=== PATIENT | male | born 1970 | race Caucasian/White ===

== ENCOUNTER 2017-12-20 08:59 | Emergency (ER) | payer OTHER ==
[2017-12-20] MEDS ORDERED: NORMAL SALINE 1000 ML 500 ML IV ONE (09:14)
--- NOTE | 2017-12-20 09:22 | ER Document Report ---
ED Medical Screen (RME) - General Chief Complaint: Abdominal Pain Stated Complaint: ABDOMEN PAIN Time Seen by Provider: 12/20/17 09:13 TRAVEL OUTSIDE OF THE [place] IN LAST 30 DAYS: No - HPI Notes: 12/20/17 09:20 Patient is a 47-year-old male that presents to the emergency department for chief complaint of right upper quadrant pain and jaundice. Patient has had worsening jaundice, ascites and abdominal pain for the last 3 weeks. He states he was a daily drinker of alcohol and quit 6 weeks ago. He denies any history of liver issues prior to the last few weeks. He was recently seen at [facility] this issue. He has an appointment tomorrow morning for paracentesis but states he cannot wait that long. ROS: GENERAL: Denies fever of chills CV: Denies chest pain PHYSICAL EXAMINATION: GENERAL: Well-appearing, well-nourished and in no acute distress. HEAD: Atraumatic, normocephalic. EYES: Pupils equal round extraocular movements intact, scleral icterus ENT: Nares patent NECK: Normal range of motion LUNGS: No respiratory distress Musculoskeletal: Normal range of motion NEUROLOGICAL: Normal speech, normal gait. PSYCH: Normal mood, normal affect. Skin: Jaundice Abdominal: Tense ascites and distention no guarding MDM: Patient seen and examined for rapid initial assessment. Vital signs reviewed. A comprehensive ED assessment and evaluation of the patient, analysis of test results and completion of the medical decision making process will be conducted by additional ED providers. - Related Data Allergies/Adverse Reactions: No Known Allergies Allergy (Verified 12/20/17 09:03) Physical Exam - Vital signs Vitals: Temp Pulse Resp BP Pulse Ox 98.3 F 80 20 128/90 H 99 12/20/17 09:09 12/20/17 09:09 12/20/17 09:09 12/20/17 09:09 12/20/17 09:09 Course - Vital Signs Vital signs: Temp Pulse Resp BP Pulse Ox 98.3 F 80 20 128/90 H 99 12/20/17 09:09 12/20/17 09:09 12/20/17 09:09 12/20/17 09:09 12/20/17 09:09
[2017-12-20 10:01] LABS: ABSOLUTE EOSINOPHILS # (AUTO) 0.2 10^3/uL (0.0-0.6); ABSOLUTE LYMPHOCYTES (AUTO) 0.7 10^3/uL (0.5-4.7); ABSOLUTE MONOCYTES (AUTO) 0.7 10^3/uL (0.1-1.4); ABSOLUTE NEUT (AUTO) 5.5 10^3/uL (1.7-8.2); BASOPHILS % (AUTO) 0.2 % (0-2); EOSINOPHILS % (AUTO) 2.7 % (0-6); HEMATOCRIT 37.8 % (37.9-51.0); HEMOGLOBIN 13.4 g/dL (13.5-17.0); LYMPHOCYTES % (AUTO) 10.2 % (13-45); MEAN CORPUSCULAR HEMOGLOBIN 35.3 pg (27.0-33.4); MEAN CORPUSCULAR HGB CONC 35.4 g/dL (32.0-36.0); MEAN CORPUSCULAR VOLUME 100 fl (80-97); MONOCYTES % (AUTO) 9.7 % (3-13); PLATELET COUNT 139 10^3/uL (150-450); RED BLOOD COUNT 3.79 10^6/uL (4.35-5.55); RED CELL DISTRIBUTION WIDTH 15.8 % (11.5-14.0); SEGMENTED NEUTROPHILS % (AUTO) 77.2 % (42-78); TOTAL CELLS COUNTED % (AUTO) 100 %; WHITE BLOOD COUNT 7.1 10^3/uL (4.0-10.5)
--- NOTE | 2017-12-20 10:02 | ER Document Report ---
ED General - General Chief Complaint: Abdominal Pain Stated Complaint: ABDOMEN PAIN Time Seen by Provider: 12/20/17 09:13 TRAVEL OUTSIDE OF THE [place] IN LAST 30 DAYS: No - HPI Notes: Patient is a 47-year-old male with no medical history who presents to the emergency department with a three-week history of jaundice, ascites, and abdominal fullness occ RUQ pain. Patient states the jaundice began 3 weeks ago and has progressed rapidly. He reports drinking 6-12 beers per day for the majority of his adult life however he states he has not had a drink in the past 6 weeks. He was recently evaluated [facility]. Patient recently went to his PCP who scheduled him for paracentesis. However, he was unable to obtain the paracentesis due to scheduling issues. Patient states that he is still able to eat and drink, but does have a decreased p.o. intake. He is urinating normally and having normal bowel movements. Denies any headache, fever, changes in vision/speech/mentation/hearing, URI, chest pain , palpitations, syncope, cough, shortness of breath, wheeze, dyspnea, nausea/ vomiting/diarrhea, urinary retention, dysuria, hematuria, back pain, loss of control of bowel or bladder, or muscle paralysis/weakness. Documented by Brett MC Agree with documentation above, JAXON. - Related Data Allergies/Adverse Reactions: No Known Allergies Allergy (Verified 12/20/17 09:03) Past Medical History - Social History Smoking Status: Never Smoker Chew tobacco use (# tins/day): No Frequency of alcohol use: quit 6 wks ago Drug Abuse: None Family History: Reviewed & Not Pertinent Patient has suicidal ideation: No Patient has homicidal ideation: No - Past Medical History Cardiac Medical History: Reports: Hx Hypertension Renal/ Medical History: Denies: Hx Peritoneal Dialysis Review of Systems - Review of Systems -: Yes All other systems reviewed and negative Physical Exam - Vital signs Vitals: Temp Pulse Resp BP Pulse Ox 98.3 F 80 20 128/90 H 99 12/20/17 09:09 12/20/17 09:09 12/20/17 09:09 12/20/17 09:09 12/20/17 09:09 - Notes Notes: PHYSICAL EXAMINATION: GENERAL: Well-appearing, well-nourished and in no acute distress. A&Ox4. Answers questions appropriately. HEAD: Atraumatic, normocephalic. EYES: Pupils equal round and reactive to light, extraocular movements intact, + sclera icteric, conjunctiva are normal. ENT: Nares patent and without discharge. oropharynx clear without exudates. No tonsilar hypertrophy or erythema. Moist mucous membranes. NECK: Normal range of motion, supple without lymphadenopathy LUNGS: Breath sounds clear to auscultation bilaterally and equal. No wheezes rales or rhonchi. HEART: Regular rate and rhythm without murmurs, rubs, gallops. ABDOMEN: tense, obtunded No guarding, no rebound. Normal bowel sounds present. No CVA tenderness bilaterally. Musculoskeletal: FROM to passive/active. Strength 5+/5. Extremities: No cyanosis, clubbing, or edema b/l. Peripheral pulses 2+. Capillary refill less than 3 seconds. NEUROLOGICAL: Cranial nerves grossly intact. Normal speech, normal gait. PSYCH: Normal mood, normal affect. SKIN: jaundice Course - Re-evaluation Re-evalutation: 12/20/17 13:28 I did call and speak with our hospitalist, Dr. Lancaster, who advised paracentesis by radiology and discharged home. I did speak with our radiologist who is in agreement with the paracentesis. I then spoke with Dr. Topete, GI, who believes that this is alcoholic hepatitis and to have him follow-up after paracentesis and ultrasound in his office next week. 12/20/17 16:[address] Park, surgeon, about his labs and cholelithiasis. He does not believe this is a blocked duct and is okay for discharge. Patient is an afebrile, well-hydrated, 47-year-old male who presents to the ED with elevated bilirubin, jaundice, ascites, and acute UTI. Etiology is unclear at this time. Vitals are acceptable without any significant tachycardia, tachypnea, or hypoxia. PE is otherwise unremarkable. Patient had a successful paracentesis performed today that withdrew 4500 cc of fluid. Labs are pending. Ascitic fluid acceptable at this time. CBC showed mild anemia. INR within normal limits. CMP showed hypokalemia. Patient did receive p.o. potassium chloride today. CT scan was unremarkable for acute pathology aside from the ascitic fluid/distended abdomen. Urinalysis does have white blood cell clumps showing a bacteria in the urine so I will be covering him for urinary infection. Urine culture is pending. No further labs or imaging warranted at this time based on H&P. Low suspicion/risk for acute appendicitis, bowel obstruction, acute cholecystitis, perforated diverticulitis, incarcerated hernia , pancreatitis, perforated ulcer, peritonitis, sepsis, testicular torsion, or other systemic emergent condition at this time. Patient is aware that his condition can change from initial presentation and he needs to monitor symptoms closely and seek medical attention if any acute changes. I did review with him the differential including benign conditions for ascites as well as possible cancer. I will send him home with a prescription for Keflex. Conservative measures otherwise for symptoms. Recheck with PCM in 3-5 days. Schedule an appointment with gastroenterology for next week. Return to the ED with any worsening/concerning symptoms otherwise as reviewed in discharge. Patient is in agreement. - Vital Signs Vital signs: Temp Pulse Resp BP Pulse Ox 98.3 F 80 19 120/65 98 12/20/17 09:09 12/20/17 09:09 12/20/17 14:14 12/20/17 14:14 12/20/17 14:14 - Laboratory Result Diagrams: 12/20/17 09:25 12/20/17 09:25 Laboratory results interpreted by me: 12/20/17 12/20/17 12/20/17 09:25 09:25 09:25 RBC 3.79 L Hgb 13.4 L Hct 37.8 L MCV 100 H MCH 35.3 H RDW 15.8 H Plt Count 139 L Lymphocytes % 10.2 L PT Potassium 3.0 L* Creatinine 1.62 H Est GFR ( Amer) 56 L Est GFR (Non-Af Amer) 46 L Total Bilirubin 38.1 H Direct Bilirubin 34.3 H AST 136 H Alkaline Phosphatase 256 H Total Protein 8.8 H Urine Glucose (UA) 50 H Urine Blood SMALL H Urine Bilirubin MODERATE H Urine Urobilinogen 4.0 H 12/20/17 09:25 RBC Hgb Hct MCV MCH RDW Plt Count Lymphocytes % PT 17.1 H Potassium Creatinine Est GFR ( Amer) Est GFR (Non-Af Amer) Total Bilirubin Direct Bilirubin AST Alkaline Phosphatase Total Protein Urine Glucose (UA) Urine Blood Urine Bilirubin Urine Urobilinogen Discharge - Discharge Clinical Impression: Acute UTI (urinary tract infection), Hypokalemia, Jaundice Ascites Qualifiers: Ascites type: due to alcoholic cirrhosis Qualified Code(s): K70.31 - Alcoholic cirrhosis of liver with ascites Condition: Stable Disposition: HOME, SELF-CARE Instructions: Abdominal Pain ([facility]), Cephalexin ([facility]), Urinary Tract Infection ( [facility]) Additional Instructions: Maintain adequate fluid and food intake Healthy diet Avoid alcohol Zofran as needed Monitor for any worsening symptoms Make sure you are staying hydrated enough to urinate and have normal BM's Have your potassium rechecked next week* Recheck with your PCM in 3-5 days Schedule appointment gastroenterology next week for further evaluation and management Return to the ED with any worsening symptoms and/or development of fever, headache, chest pain, palpitations, syncope, shortness of breath, trouble breathing, abdominal pain, n/v/d, blood in stool/urine, weakness, or other worsening symptoms that are concerning to you. Prescriptions: Ondansetron [Zofran Odt 4 mg Tablet] 1 - 2 tab PO Q4H PRN #15 tab.rapdis PRN Reason: For Nausea/Vomiting Potassium Chloride 10 meq PO DAILY #10 capsule.er Referrals: CATA DAHL NP [Primary Care Provider] - Follow up in 3-5 days PILI TOPETE MD [ACTIVE STAFF] - Follow up in 1 week
--- NOTE | 2017-12-20 10:02 | ER Document Report ---
HPI - HPI Pain Level: 4 - DERM Skin Color: Jaundiced Past Medical History - Social History Smoking Status: Never Smoker Chew tobacco use (# tins/day): No Frequency of alcohol use: quit 6 wks ago Drug Abuse: None Family History: Reviewed & Not Pertinent Patient has suicidal ideation: No Patient has homicidal ideation: No - Past Medical History Cardiac Medical History: Reports: Hx Hypertension Renal/ Medical History: Denies: Hx Peritoneal Dialysis Vertical Provider Document - INFECTION CONTROL TRAVEL OUTSIDE OF THE [place] IN LAST 30 DAYS: No Course - Vital Signs Vital signs: Temp Pulse Resp BP Pulse Ox 98.3 F 80 20 128/90 H 99 12/20/17 09:09 12/20/17 09:09 12/20/17 09:09 12/20/17 09:09 12/20/17 09:09 - Laboratory Result Diagrams: 12/20/17 09:25 12/20/17 09:25
[2017-12-20 10:12] LABS: AMORPHOUS SEDIMENT,URINE 1+ /HPF; APPEARANCE,URINE SLIGHTLY-CLOUDY; BILIRUBIN,URINE MODERATE (NEGATIVE); COLOR,URINE AMBER; GLUCOSE, URINE 50 mg/dL (NEGATIVE); KETONES,URINE NEGATIVE (NEGATIVE); LEUKOCYTE ESTERASE,URINE NEGATIVE (NEGATIVE); NITRITE,URINE NEGATIVE (NEGATIVE); PROTEIN,URINE NEGATIVE (NEGATIVE); URINE SPECIFIC GRAVITY 1.015
[2017-12-20 10:22] LABS: ALANINE AMINOTRANSFERASE 40 U/L (21-72); ALBUMIN 3.5 g/dL (3.5-5.0); ALKALINE PHOSPHATASE 256 U/L (38-126); ANION GAP 14 (5-19); ASPARTATE AMINO TRANSFERASE 136 U/L (17-59); BLOOD UREA NITROGEN 20 mg/dL (7-20); CARBON DIOXIDE 24 mmol/L (22-30); CHLORIDE 101 mmol/L (98-107); GLUCOSE 100 mg/dL (75-110); LIPASE 296.9 U/L (23-300); SODIUM 138.5 mmol/L (137-145); TOTAL PROTEIN 8.8 g/dL (6.3-8.2)
[2017-12-20 10:28] LABS: BILIRUBIN,TOTAL 38.1 mg/dL (0.2-1.3)
[2017-12-20 10:29] LABS: BILIRUBIN,DIRECT 34.3 mg/dL (0.0-0.4)
[2017-12-20 10:31] LABS: CALCIUM 8.9 mg/dL (8.4-10.2)
[2017-12-20] MEDS ORDERED: POTASSIUM CHLORIDE 10 MEQ CAPSULE.ER PO ONE (11:13)
[2017-12-20 12:07] LABS: INTERNATIONAL RATION (INR) 1.33; PROTHROMBIN TIME 17.1 SEC (11.4-15.4)
--- NOTE | 2017-12-20 12:48 | RADIOLOGY REPORT (SQ) ---
EXAM DESCRIPTION: CT ABD/PELVIS WITH IV ONLY COMPLETED DATE/TIME: 12/20/2017 12:30 pm REASON FOR STUDY: ascities COMPARISON: None. TECHNIQUE: CT scan of the abdomen and pelvis performed using helical scanning technique with dynamic intravenous contrast injection. No oral contrast. Images reviewed with lung, soft tissue, and bone windows. Reconstructed coronal and sagittal MPR images reviewed. Delayed images for evaluation of the urinary system also acquired. All images stored on PACS. All CT scanners at this facility use dose modulation, iterative reconstruction, and/or weight based d osing when appropriate to reduce radiation dose to as low as reasonably achievable (ALARA). [facility]: Dose Right [facility]: CareDose [facility]: Dose Right [facility]: Teradose 4D [facility]: FMS [place] CONTRAST TYPE AND DOSE: contrast/concentration: Isovue 300.00 mg/ml; Total Contrast Delivered: 98.0 ml; Total Saline Delivered: 57.0 ml 98 cc Omnipaque 350- low osmolar. RENAL FUNCTION: Creatinine 1.62 RADIATION DOSE: CT Rad equipment meets quality standard of care and radiation dose reduction techniq ues were employed. CTDIvol: 18.7 - 20.2 mGy. DLP: 2438 mGy-cm.. LIMITATIONS: None. FINDINGS: LOWER CHEST: No significant findings. No nodules or infiltrates. LIVER: Hepatomegaly. 27 cm. No hepatic masses. No ductal dilatation. SPLEEN: Splenomegaly. 19 cm in length. No intrinsic splenic masses. PANCREAS: No masses. No significant calcifications. No adjacent inflammation or peripancreatic fluid collections. Pancreatic duct not dilated. GALLBLADDER: Not visualized. No history of cholecystectomy bra clinical information. ADRENAL GLANDS: No significant masses or asymmetry. RIGHT KIDNEY AND URETER: No solid masses. No significant calcifications. No hydronephrosis or hyd roureter. LEFT KIDNEY AND URETER: No solid masses. No significant calcifications. No hydronephrosis or hydr oureter. AORTA AND VESSELS: No aneurysm. No dissection. Renal arteries, SMA, celiac without stenosis. RETROPERITONEUM: No retroperitoneal adenopathy, hemorrhage or masses. BOWEL AND PERITONEAL CAVITY: No masses or inflammatory changes. Large volume of abdominal and pelvic ascites. APPENDIX: Normal. PELVIS: No mass. No free fluid. Normal bladder. ABDOMINAL WALL: No masses. No hernias. BONES: No significant or acute findings. OTHER: No other significant finding. IMPRESSION: Large volume of abdominal and pelvic ascites. Hepatosplenomegaly. TECHNICAL DOCUMENTATION: JOB ID: [id number] Quality ID # [id number]: Final reports with documentation of one or more dose reduction techniques (e.g., Au tomated exposure control, adjustment of the mA and/or kV according to patient size, use of iterative reconstruction technique) 2010 [employer]- All Rights Reserved Reading location - IP/workstation name: [email or web address]
[2017-12-20] MEDS ORDERED: HYDROMORPHONE HCL INJ/PF 2 MG/ML AMPULE IV ONE (13:22)
[2017-12-20 16:12] LABS: FLUID APPEARANCE CLEAR; FLUID COLOR YELLOW; FLUID SOURCE ASCITES; FLUID VISCOSITY LIQUID
[2017-12-20 16:14] LABS: FLUID TYPE PERITONEAL
--- NOTE | 2017-12-20 16:24 | RADIOLOGY REPORT (SQ) ---
EXAM DESCRIPTION: U/S ABD PARACENTESIS COMPLETED DATE/TIME: 12/20/2017 3:56 pm REASON FOR STUDY: ascites, jaundice COMPARISON CT abdomen pelvis 12/20/2017 LIMITATIONS: None. PROCEDURE: After obtaining informed consent, the patient was brought to the ultrasound suite. The p rocedure was performed with the patient on a gurney. Ultrasound was used to identify a prominent poc ket of ascites in the right lower quadrant. An appropriate access site was selected. The patient wa s prepped and draped in usual sterile fashion. The access site was anesthetized with 7 mL 1% lidoca ine. A [id number] needle was advanced into the fluid. After aspiration of fluid the needle, th e catheter was advanced off the needle into the fluid. A total of 4,500 mL of cloudy straw-colored f luid was removed. The patient tolerated the procedure well left the department in satisfactory condit ion. Fluoro was sent for testing as per the emergency room physician IMPRESSION: Successful ultrasound-guided paracentesis COMMENT: Patient medication list reviewed: Yes- Quality ID# [id number]:Eligible professional attests to doc umenting in the medical record they obtained, updated, or reviewed the patient's current medications. TECHNICAL DOCUMENTATION: JOB ID: [id number] [employer]- All Rights Reserved Reading location - IP/workstation name: [email or web address]
--- NOTE | 2017-12-20 16:40 | RADIOLOGY REPORT (SQ) ---
EXAM DESCRIPTION: U/S ABDOMEN LIMITED W/O DOP COMPLETED DATE/TIME: 12/20/2017 4:21 pm REASON FOR STUDY: elevated LFT's COMPARISON: None. TECHNIQUE: Dynamic and static grayscale images acquired of the abdomen and recorded on PACS. Additio nal selected color Doppler and spectral images recorded. LIMITATIONS: None. FINDINGS: PANCREAS: No masses. Visualized pancreatic duct normal caliber. LIVER: 18.5 cm. No masses. There is ascites. LIVER VASCULATURE: Not well seen. GALLBLADDER: Gallstones and sludge. Slight thickening of the gallbladder wall ULTRASOUND-DETECTED BUENO'S SIGN: Negative. INTRAHEPATIC DUCTS AND COMMON DUCT: CBD and intrahepatic ducts normal caliber. No filling defects. INFERIOR VENA CAVA: Not imaged. AORTA: No aneurysm. RIGHT KIDNEY: Normal size, 10.8 cm. Normal echogenicity. No solid or suspicious masses. No hydroneph rosis. No calcifications. PERITONEAL AND RIGHT PLEURAL SPACE: No ascites or effusions. OTHER: No other significant findings. IMPRESSION: Cholelithiasis. Questionable thickening of gallbladder wall. This may be secondary to the ascites. Ascites. TECHNICAL DOCUMENTATION: JOB ID: [id number] [employer]- All Rights Reserved Reading location - IP/workstation name: [email or web address]
[2017-12-20 18:17] VITALS: BP 123/81
--- NOTE | 2017-12-20 23:11 | EKG REPORT ---
SEVERITY:- ABNORMAL ECG - SINUS RHYTHM BORDERLINE T ABNORMALITIES, ANT-LAT LEADS PROLONGED QT INTERVAL : Confirmed by: Meet Louie 20-Dec-2017 23:10:06
[2017-12-28 13:38] LABS: HEPATITIS A AB IGM Negative (Negative); HEPATITIS B CORE AB IGM Negative (Negative); HEPATITS B SURFACE ANTIGEN Negative (Negative)
[2017-12-28 14:23] LABS: HEPATITIS C VIRUS ANTIBODY <0.1 s/co ratio (0.0-0.9)
== END 2017-12-20 18:52 | disposition home or self-care (01) ==
LOC: ER 08:59
DX: K70.31 Alcoholic cirrhosis of liver with ascites (principal); N39.0 Urinary tract infection, site not specified; E87.6 Hypokalemia; R10.11 Right upper quadrant pain; I10 Essential (primary) hypertension; D64.9 Anemia, unspecified
CPT/HCPCS: 93005; 99284; 96360; 36415; 87205; 87206; 87116; 87070; 87101; 82140; 87252; 83690; 85025; 85610; 89050; 87075; 80053; 81001; 87015; 80074; 76705; 49083; 74177; 93010; J7030

== ENCOUNTER 2017-12-28 08:08 | Emergency (ER) | payer OTHER ==
[2017-12-28 10:58] LABS: INTERNATIONAL RATION (INR) 1.35; PROTHROMBIN TIME 17.3 SEC (11.4-15.4)
[2017-12-28 10:59] LABS: HEMATOCRIT 36.8 % (37.9-51.0); HEMOGLOBIN 13.4 g/dL (13.5-17.0); MEAN CORPUSCULAR HEMOGLOBIN 35.9 pg (27.0-33.4); MEAN CORPUSCULAR HGB CONC 36.4 g/dL (32.0-36.0); MEAN CORPUSCULAR VOLUME 99 fl (80-97); PARTIAL THROMBOPLASTIN TIME 38.9 SEC (23.5-35.8); PLATELET COUNT 142 10^3/uL (150-450); RED BLOOD COUNT 3.73 10^6/uL (4.35-5.55); WHITE BLOOD COUNT 6.1 10^3/uL (4.0-10.5)
[2017-12-28 11:05] LABS: ALANINE AMINOTRANSFERASE 48 U/L (21-72); ALBUMIN 3.2 g/dL (3.5-5.0); ALKALINE PHOSPHATASE 230 U/L (38-126); ANION GAP 12 (5-19); ASPARTATE AMINO TRANSFERASE 129 U/L (17-59); BLOOD UREA NITROGEN 27 mg/dL (7-20); CALCIUM 8.9 mg/dL (8.4-10.2); CARBON DIOXIDE 23 mmol/L (22-30); CHLORIDE 96 mmol/L (98-107); GLUCOSE 105 mg/dL (75-110); LIPASE 1308.8 U/L (23-300); SODIUM 131.2 mmol/L (137-145); TOTAL PROTEIN 8.1 g/dL (6.3-8.2)
[2017-12-28 11:14] LABS: BILIRUBIN,TOTAL 36.1 mg/dL (0.2-1.3)
[2017-12-28 11:21] LABS: POTASSIUM 2.9 mmol/L (3.6-5.0)
[2017-12-28 11:26] LABS: ABSOLUTE LYMPHOCYTES# (MANUAL) 0.6 10^3/uL (0.5-4.7); ABSOLUTE MONOCYTES # (MANUAL) 0.5 10^3/uL (0.1-1.4); ABSOLUTE NEUTROPHILS# (MANUAL) 4.8 10^3/uL (1.7-8.2); BAND NEUTROPHILS % (MANUAL) 2 % (3-5); BASOPHILS % (MANUAL) 0 % (0-2); EOSINOPHILS % (MANUAL) 3 % (0-6); LYMPHOCYTES % (MANUAL) 10 % (13-45); METAMYELOCYTES % (MANUAL) 1 % (0); MONOCYTES % (MANUAL) 9 % (3-13); SEGMENTED NEUTROPHILS % (MAN) 75 % (42-78); TOTAL CELLS COUNTED 100
[2017-12-28 11:29] LABS: ANISOCYTOSIS 1+; OVALOCYTES 1+; PLATELET CLUMPS PRESENT; POIKILOCYTOSIS 1+; POLYCHROMASIA SLIGHT; TEAR DROP CELLS SLIGHT
[2017-12-28] MEDS ORDERED: POTASSIUM CHLORIDE 10 MEQ CAPSULE.ER PO ONE (11:52)
--- NOTE | 2017-12-28 15:53 | RADIOLOGY REPORT (SQ) ---
EXAM DESCRIPTION: U/S ABD PARACENTESIS COMPLETED DATE/TIME: 12/28/2017 3:08 pm REASON FOR STUDY: Massive ascites COMPARISON None. LIMITATIONS: None. PROCEDURE: After obtaining informed consent, the patient was brought to the ultrasound suite. The p rocedure was performed with the patient on a gurney. Ultrasound was used to identify a prominent poc ket of ascites in the right lower quadrant. An appropriate access site was selected. The patient wa s prepped and draped in usual sterile fashion. The access site was anesthetized with Three mL 1% li docaine. A [id number] needle was advanced into the fluid. After aspiration of fluid the needle , the catheter was advanced off the needle into the fluid. A total of 6,000 mL of cloudy dione fluid was removed. The patient tolerated the procedure well left the department in satisfactory condition. IMPRESSION: Successful ultrasound-guided paracentesis COMMENT: Patient medication list reviewed: Yes- Quality ID# [id number]:Eligible professional attests to doc umenting in the medical record they obtained, updated, or reviewed the patient's current medications. TECHNICAL DOCUMENTATION: JOB ID: [id number] [email or web address]- All Rights Reserved Reading location - IP/workstation name: [email or web address]
--- NOTE | 2017-12-28 16:00 | RADIOLOGY REPORT (SQ) ---
EXAM DESCRIPTION: U/S ABDOMEN LIMITED W/O DOP COMPLETED DATE/TIME: 12/28/2017 3:47 pm REASON FOR STUDY: elevated lipase COMPARISON: CT from 12/20/2017. TECHNIQUE: Dynamic and static grayscale images acquired of the abdomen and recorded on PACS. Additio nal selected color Doppler and spectral images recorded. LIMITATIONS: None. FINDINGS: PANCREAS: No masses. Visualized pancreatic duct normal caliber. LIVER: Mildly heterogeneous parenchyma. Perihepatic fluid is noted. The liver is enlarged, greater than 19 cm. No focal mass. LIVER VASCULATURE: Pulsatile but appropriate flow in the main portal vein. GALLBLADDER: Limited assessment, decompressed. Sludge within. ULTRASOUND-DETECTED BUENO'S SIGN: Negative. INTRAHEPATIC DUCTS AND COMMON DUCT: CBD and intrahepatic ducts normal caliber. No filling defects. INFERIOR VENA CAVA: Normal flow. AORTA: No aneurysm. RIGHT KIDNEY: Normal size. Normal echogenicity. No solid or suspicious masses. No hydronephrosis. No calcifications. PERITONEAL AND RIGHT PLEURAL SPACE: No ascites or effusions. OTHER: No other significant findings. IMPRESSION: 1. Heterogeneous enlarged liver with ascites, known cirrhosis. 2. Probable gallbladde r sludge but no clear suggestion of acute cholecystitis. TECHNICAL DOCUMENTATION: JOB ID: [id number] [employer]- All Rights Reserved Reading location - IP/workstation name: [email or web address]
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
[2017-12-28 18:32] VITALS: BP 115/60
== END 2017-12-28 18:31 | disposition home or self-care (01) ==
LOC: ER 08:08
DX: K70.31 Alcoholic cirrhosis of liver with ascites (principal); E87.6 Hypokalemia
CPT/HCPCS: 36415; 49083; 76705; 80053; 83690; 85025; 85610; 85730; 99284

== ENCOUNTER 2018-01-02 08:02 | Inpatient (IN) | payer OTHER ==
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
[2018-01-02 09:23] LABS: HEMATOCRIT 35.7 % (37.9-51.0); HEMOGLOBIN 12.9 g/dL (13.5-17.0); MEAN CORPUSCULAR HEMOGLOBIN 35.7 pg (27.0-33.4); MEAN CORPUSCULAR VOLUME 99 fl (80-97); PLATELET COUNT 175 10^3/uL (150-450); RED CELL DISTRIBUTION WIDTH 15.8 % (11.5-14.0); WHITE BLOOD COUNT 4.4 10^3/uL (4.0-10.5)
[2018-01-02] MEDS ORDERED: MORPHINE SULFATE 10 MG/ML INJ IV ONE (09:33)
[2018-01-02 09:49] LABS: ABSOLUTE LYMPHOCYTES# (MANUAL) 0.5 10^3/uL (0.5-4.7); ABSOLUTE MONOCYTES # (MANUAL) 0.2 10^3/uL (0.1-1.4); ABSOLUTE NEUTROPHILS# (MANUAL) 3.5 10^3/uL (1.7-8.2); ALANINE AMINOTRANSFERASE 61 U/L (21-72); ALKALINE PHOSPHATASE 224 U/L (38-126); ANION GAP 12 (5-19); ASPARTATE AMINO TRANSFERASE 156 U/L (17-59); BAND NEUTROPHILS % (MANUAL) 9 % (3-5); BASOPHILS % (MANUAL) 1 % (0-2); BLOOD UREA NITROGEN 41 mg/dL (7-20); CARBON DIOXIDE 21 mmol/L (22-30); CHLORIDE 98 mmol/L (98-107); EOSINOPHILS % (MANUAL) 3 % (0-6); GLUCOSE 132 mg/dL (75-110); LIPASE 377.2 U/L (23-300); LYMPHOCYTES % (MANUAL) 12 % (13-45); MONOCYTES % (MANUAL) 4 % (3-13); POTASSIUM 3.6 mmol/L (3.6-5.0); SEGMENTED NEUTROPHILS % (MAN) 71 % (42-78); SODIUM 130.8 mmol/L (137-145); TOTAL CELLS COUNTED 100; TOTAL PROTEIN 7.7 g/dL (6.3-8.2)
[2018-01-02 09:51] LABS: TOXIC VACUOLATION PRESENT
[2018-01-02 09:52] LABS: ANISOCYTOSIS 1+; BURR CELLS SLIGHT; OVALOCYTES 1+; PLATELET COMMENT ADEQUATE; POIKILOCYTOSIS 2+; SCHISTOCYTES 1+; TEAR DROP CELLS SLIGHT
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
[2018-01-02 09:55] LABS: BILIRUBIN,TOTAL 35.2 mg/dL (0.2-1.3)
[2018-01-02 09:56] LABS: INTERNATIONAL RATION (INR) 1.36; PROTHROMBIN TIME 17.5 SEC (11.4-15.4)
[2018-01-02 09:57] LABS: BILIRUBIN,DIRECT 32.3 mg/dL (0.0-0.4)
[2018-01-02 09:58] LABS: PARTIAL THROMBOPLASTIN TIME 38.5 SEC (23.5-35.8)
[2018-01-02] MEDS ORDERED: HYDROMORPHONE HCL INJ/PF 2 MG/ML AMPULE IV ONE (10:18)
[2018-01-02] MEDS ORDERED: NORMAL SALINE 1000 ML 1,000 ML IV ONE (10:18)
[2018-01-02] MEDS ORDERED: LIDOCAINE 1% INJ-PF (10 MG/ML) 30 ML SDV ONE (10:23)
[2018-01-02] MEDS ORDERED: NORMAL SALINE 500 ML IV ONE (10:34)
--- NOTE | 2018-01-02 12:25 | RADIOLOGY REPORT (SQ) ---
EXAM DESCRIPTION: U/S ABD PARACENTESIS COMPLETED DATE/TIME: 01/02/2018 11:52 am REASON FOR STUDY: Ascites COMPARISON 12/20/2017, 12/28/2017 LIMITATIONS: None. PROCEDURE: After obtaining informed consent, the patient was brought to the ultrasound suite. The p rocedure was performed with the patient on a gurney. Ultrasound was used to identify a prominent poc ket of ascites in the right lower quadrant. An appropriate access site was selected. The patient wa s prepped and draped in usual sterile fashion. The access site was anesthetized with 6 mL 1% lidoca ine. A [id number]-B-[id number] needle was advanced into the fluid. After aspiration of fluid the needle, th e catheter was advanced off the needle into the fluid. A total of 6,000 mL of cloudy dione colored f luid was removed. The patient tolerated the procedure well left the department in satisfactory condit ion. Specimens of fluid were sent to the lab for testing as per emergency room physician IMPRESSION: Successful ultrasound-guided therapeutic and diagnostic paracentesis COMMENT: Patient medication list reviewed: Yes- Quality ID# [id number]:Eligible professional attests to doc umenting in the medical record they obtained, updated, or reviewed the patient's current medications. TECHNICAL DOCUMENTATION: JOB ID: [id number] [employer]- All Rights Reserved Reading location - IP/workstation name: [id number]
[2018-01-02 12:54] LABS: FLUID APPEARANCE CLOUDY; FLUID COLOR YELLOW; FLUID SOURCE ASCITES; FLUID TYPE PERITONEAL; FLUID VISCOSITY SLIGHTLY VISCOUS
[2018-01-02] MEDS ORDERED: CEFTRIAXONE INJ 1000 MG VIAL IV ONE (14:06)
[2018-01-02] MEDS ORDERED: PIPERACILLIN/TAZOBACTAM 3.375 GM VIAL IV SCH (16:30)
[2018-01-02 17:22] LABS: AMORPHOUS SEDIMENT,URINE TRACE /HPF; APPEARANCE,URINE CLOUDY; BILIRUBIN,URINE MODERATE (NEGATIVE); COLOR,URINE AMBER; GLUCOSE, URINE 50 mg/dL (NEGATIVE); KETONES,URINE NEGATIVE (NEGATIVE); LEUKOCYTE ESTERASE,URINE NEGATIVE (NEGATIVE); NITRITE,URINE NEGATIVE (NEGATIVE); PROTEIN,URINE 30 mg/dL (NEGATIVE); URINE SPECIFIC GRAVITY 1.016
[2018-01-02] MEDS: LANSOPRAZOLE 30 MG TAB.RAP.DR PO SCH (18:05)
[2018-01-02] MEDS ORDERED: PIPERACILLIN SODIUM/TAZOBACTAM 3.375 GM in NORMAL SALINE 100 ML IV SCH (19:00)
--- NOTE | 2018-01-02 20:17 | PDOC H&P ---
History of Present Illness Admission Date/PCP: 01/02/18 14:33 Patient complains of: Abdominal pain History of Present Illness: JAY BURTON is a 47 year old man who has an extensive alcohol abuse history. He quit drinking 10 weeks ago as it was no longer appealing to him. Unfortunately the patient, over the past several weeks, has had to come to the ER 3 times for large volume paracenteses. He is here for the same reason this time, with a distended painful abdomen. He has undergone paracentesis in the ER and there is evidence of infection with rebound tenderness and is been started on ant biotics. The patient also has severe jaundice with elevated bilirubin. He has an elevated INR and acute kidney injury. The patient is being admitted to the hospitalist service with complications related to cirrhosis including ascites, spontaneous bacterial peritonitis and possible hepatorenal syndrome. Past Medical History Cardiac Medical History: Reports: Hypertension Pulmonary Medical History: Reports: None EENT Medical History: Reports: None Endocrine Medical History: Reports: None Denies: Diabetes Mellitus Type 2 Renal/ Medical History: Denies: Chronic Kidney Disease Malignancy Medical History: Reports: None GI Medical History: Reports: Cirrhosis Musculoskeltal Medical History: Denies: Arthritis Skin Medical History: Reports: None Psychiatric Medical History: Reports: Alcohol Dependency Denies: Substance Abuse, Tobacco Dependency Hematology: Reports: None Infectious Medical History: Denies: Hepatitis B, Hepatitis C Past Surgical History Past Surgical History: Reports: Other - Vasectomy Social History Information Source: Patient Lives with: Family Smoking Status: Never Smoker Frequency of Alcohol Use: Heavy - 10 weeks ago, started at the age of 17 and reports that when he was in the [employer] for many years he drank substantially Hx Recreational Drug Use: Yes Drugs: Cocaine - Cocaine use in the very remote past Past Social History Note: Patient now lives with his son and son's family. He was in 2014. He is an [place] war and retired in 2013 from the [employer]. - Advance Directive Resuscitation Status: Full Code Surrogate healthcare decision maker:: His healthcare surrogate's are #1 his son Jason phone number [phone] #2 his daughter Hailee phone #[phone]. Family History Family History: Reviewed & Not Pertinent Parental Family History Reviewed: Yes - Other had an alcohol abuse history and is abstinent now, father [place] vet Children Family History Reviewed: Yes - Son Jason has some kind of cardiac diagnosis, they think it might be a murmur Sibling(s) Family History Reviewed.: Yes Medication/Allergy Home Medications: No Home Medications 01/02/18 Allergies/Adverse Reactions: bee venom protein (honey bee) Adverse Reaction (Intermediate, Verified 01/02/18 08:03) Edema Review of Systems Constitutional: PRESENT: chills, fatigue, weakness. ABSENT: anorexia, fever(s) Eyes: ABSENT: visual disturbances Ears: ABSENT: hearing changes Nose, Mouth, and Throat: ABSENT: mouth pain, sore throat Cardiovascular: PRESENT: edema, orthropnea. ABSENT: chest pain Respiratory: ABSENT: cough, hemoptysis Gastrointestinal: PRESENT: abdominal pain, bloating. ABSENT: coffee ground emesis, melena, nausea, vomiting Genitourinary: ABSENT: difficulty urinating, dysuria Musculoskeletal: ABSENT: muscle weakness Integumentary: PRESENT: other - skin looks yellow. ABSENT: diaphoresis Neurological: ABSENT: confusion, focal weakness, frequent falls, memory loss, syncope Psychiatric: ABSENT: anxiety, depression Endocrine: ABSENT: cold intolerance, heat intolerance, polyphagia, polyuria Hematologic/Lymphatic: ABSENT: easy bleeding, easy bruising Allergic/Immunologic: ABSENT: seasonal rhinorrhea Physical Exam Vital Signs: Temp Pulse Resp BP Pulse Ox 97.7 F 72 17 107/61 98 01/02/18 08:08 01/02/18 08:08 01/02/18 17:01 01/02/18 17:01 01/02/18 17:01 Intake & Output 01/01/18 01/02/18 01/03/18 06:59 06:59 06:59 Intake Total 17 Balance 17 General appearance: PRESENT: no acute distress, cooperative, obese Head exam: ABSENT: atraumatic, normocephalic Eye exam: PRESENT: EOMI, scleral icterus. ABSENT: conjunctival injection Ear exam: PRESENT: normal external ear exam. ABSENT: bleeding Mouth exam: PRESENT: neck supple, tongue midline Respiratory exam: PRESENT: clear to auscultation geoff, unlabored. ABSENT: rales , rhonchi, wheezes Cardiovascular exam: PRESENT: RRR. ABSENT: systolic murmur Pulses: PRESENT: normal radial pulses GI/Abdominal exam: PRESENT: ascites, diminished bowel sounds, distended, firm, guarding, tenderness Rectal exam: PRESENT: deferred Extremities exam: PRESENT: +1 edema Musculoskeletal exam: PRESENT: normal inspection. ABSENT: deformity Neurological exam: PRESENT: alert, awake, oriented to person, oriented to place , oriented to time, oriented to situation, other - Patient seems slightly encephalopathic though is oriented Psychiatric exam: PRESENT: appropriate affect. ABSENT: anxious Skin exam: PRESENT: dry, intact, jaundice, warm Results Laboratory Results: 01/02/18 01/02/18 15:36 16:42 Ammonia 14.7 Urine Color MADHAV Urine Appearance CLOUDY Urine pH 5.0 Ur Specific [place] 1.016 Urine Protein 30 H Urine Glucose (UA) 50 H Urine Ketones NEGATIVE Urine Blood SMALL H Urine Nitrite NEGATIVE Ur Leukocyte Esterase NEGATIVE Urine WBC (Auto) 7 Urine RBC (Auto) 1 Impressions: Paracentesis Ultrasound 01/02/18 09:39 IMPRESSION: Successful ultrasound-guided therapeutic and diagnostic paracentesis Assessment & Plan - Diagnosis (1) Ascites Qualifiers: Ascites type: due to alcoholic cirrhosis Qualified Code(s): K70.31 - Alcoholic cirrhosis of liver with ascites Is this a current diagnosis for this admission?: Yes Plan: Patient has had 3 large-volume paracenteses in the last several weeks. He underwent 5-6 L of fluid removal today. Can Sam to acute kidney injury with creatinine greater than 2 have not started him on diuresis. Tate catheter was placed and we will watch creatinine and if there is some improvement and it is safe to do so we will start patient on medical fluid removal for his severe ascites. (2) SBP (spontaneous bacterial peritonitis) Is this a current diagnosis for this admission?: Yes Plan: Fluid has significant number of white blood cells. Patient has been having chills. He has rebound tenderness. I started him on Zosyn 3.375 mg IV every 8 hours to be renally dosed by pharmacy. (3) Acute kidney injury Is this a current diagnosis for this admission?: Yes Plan: He has no known history of kidney disease. Pt is on IV fluids, has ordered tate catheter ordered, UA ordered, urine sodium ordered. Patient is receiving LR at 125 mL/h. (4) Alcohol use disorder Is this a current diagnosis for this admission?: Yes Plan: patient and i had an in depth discussion about the portance of alcohol cessation. We also talked about the possibility that he will not recover from this illness event given the severity of his liver disease, recurrent ascites, SBP, acute kidney injury. (5) Alcoholic cirrhosis of liver Qualifiers: Ascites presence: with ascites Qualified Code(s): K70.31 - Alcoholic cirrhosis of liver with ascites Is this a current diagnosis for this admission?: Yes Plan: Patient seems to understand the severity of the diagnoses are new to him and he wants to talk with his family some. He expressed multiple times that he wants to live as long as possible to see his children through certain milestone events. If he survives these events with treatment of the ascites, SBP and if he does not have hepatorenal syndrome he will be referred to outpatient gastroenterology. His meld score is indicating a 50% 7-day mortality and a 96% 30-day mortality. -Patient will be on a low-sodium diet -Diuresis is on hold given acute kidney injury -Ammonia is pending to evaluate that though encephalopathy is very mild at this time -We will need GI consult if available here if not and if he worsens we will consider transfer to higher level of care where gastroenterology is available -No evidence of GI bleed, GI prophylaxis with PPI twice daily has been started -SBP being treated with renally dosed Zosyn (6) Pancreatitis Is this a current diagnosis for this admission?: Yes Plan: Lipase is slightly elevated, patient has abdominal pain, the pain is multifactorial so I do not know how much the pancreatitis is playing into the picture. We will recheck lipase in the morning. LR at 100 mL/h. (7) Encephalopathy Is this a current diagnosis for this admission?: Yes Plan: Ammonia level is pending. Will consider lactulose but probably not now as his encephalopathy is mild. - Time Time Spent: Greater than 70 Minutes Medications reviewed and adjusted accordingly: Yes - Inpatient Certification Based on my medical assessment, after consideration of the patient's comorbidities, presenting symptoms, or acuity I expect that the services needed warrant INPATIENT care.: Yes I certify that my determination is in accordance with my understanding of Medicare's requirements for reasonable and necessary INPATIENT services [42 CFR 412.3e].: Yes Medical Necessity: Need Close Monitoring Due to Risk of Patient Decompensation, Need For IV Fluids, Need For Continuous Telemetry Monitoring, Need for IV Antibiotics, Risk of Complication if Not Cared For in Hospital
[2018-01-02] MEDS ORDERED: HEPARIN SOD (PORCINE) 5,000 UNIT/ML 1 ML SYRINGE SUBCUT SCH (22:00)
[2018-01-02] MEDS ORDERED: SPIRONOLACTONE 25 MG TABLET PO SCH (22:00)
[2018-01-02] MEDS: RINGERS SOLUTION,LACTATED 1,000 ML IV PRN (23:49)
[2018-01-02] MEDS: HYDROMORPHONE HCL INJ/PF 2 MG/ML AMPULE IV PRN (23:49)
[2018-01-03] MEDS: PIPERACILLIN SODIUM/TAZOBACTAM 2.25 GM in NORMAL SALINE 50 ML IV SCH ×4 (04:08→22:46)
[2018-01-03] MEDS: LANSOPRAZOLE 30 MG TAB.RAP.DR PO SCH ×2 (05:57→16:59)
[2018-01-03 06:59] LABS: ALANINE AMINOTRANSFERASE 54 U/L (21-72); ALBUMIN 2.4 g/dL (3.5-5.0); ALKALINE PHOSPHATASE 184 U/L (38-126); ANION GAP 14 (5-19); ASPARTATE AMINO TRANSFERASE 112 U/L (17-59); CARBON DIOXIDE 15 mmol/L (22-30); CHLORIDE 100 mmol/L (98-107); GLUCOSE 129 mg/dL (75-110); POTASSIUM 3.7 mmol/L (3.6-5.0); SODIUM 128.6 mmol/L (137-145); TOTAL PROTEIN 6.4 g/dL (6.3-8.2)
[2018-01-03 07:14] LABS: BILIRUBIN,TOTAL 32.9 mg/dL (0.2-1.3)
[2018-01-03 07:16] LABS: BILIRUBIN,DIRECT 30.9 mg/dL (0.0-0.4)
[2018-01-03 07:17] LABS: BLOOD UREA NITROGEN 50 mg/dL (7-20)
[2018-01-03 08:30] LABS: HEMATOCRIT 34.7 % (37.9-51.0); HEMOGLOBIN 12.4 g/dL (13.5-17.0); MEAN CORPUSCULAR HEMOGLOBIN 35.9 pg (27.0-33.4); MEAN CORPUSCULAR HGB CONC 35.7 g/dL (32.0-36.0); MEAN CORPUSCULAR VOLUME 100 fl (80-97); RED BLOOD COUNT 3.46 10^6/uL (4.35-5.55); RED CELL DISTRIBUTION WIDTH 15.8 % (11.5-14.0); WHITE BLOOD COUNT 7.7 10^3/uL (4.0-10.5)
--- NOTE | 2018-01-03 08:51 | RADIOLOGY REPORT (SQ) ---
EXAM DESCRIPTION: U/S LTD DUPLEX ART/PADMINI FLOW COMPLETED DATE/TIME: 01/02/2018 8:26 pm REASON FOR STUDY: evaluate budd chiari syndrome COMPARISON: None. TECHNIQUE: Realtime and static grayscale images acquired. Selected color Doppler, velocities and spe ctral images recorded. LIMITATIONS: Body habitus. FINDINGS: There is normal directional flow in the main portal vein. The hepatic veins and IVC are patent. Mild ascites. IMPRESSION: No evidence of Budd-Chiari syndrome. TECHNICAL DOCUMENTATION: JOB ID: [id number] [employer]- All Rights Reserved Reading location - IP/workstation name: [email or web address]
[2018-01-03 08:53] LABS: PLATELET COUNT 94 10^3/uL (150-450)
[2018-01-03] MEDS ORDERED: CEFTRIAXONE 1 GM/D5W RTU 50 ML IV SCH (10:00)
[2018-01-03] MEDS ORDERED: SPIRONOLACTONE 25 MG TABLET PO SCH ×2 (10:00)
[2018-01-03] MEDS ORDERED: FUROSEMIDE 20 MG TABLET PO SCH (10:00)
[2018-01-03] MEDS: RINGERS SOLUTION,LACTATED 1,000 ML IV PRN (10:03)
[2018-01-03] MEDS: HYDROMORPHONE HCL INJ/PF 2 MG/ML AMPULE IV PRN ×2 (10:08→20:56)
--- NOTE | 2018-01-03 18:40 | PDOC PROGRESS REPORT ---
Subjective Progress Note for:: 01/03/18 Subjective:: Pt is having some intermittant abdominal pain, no fevers or chills, low urine output, no headaceh or vision changes, no chest pain or difficulty breathing. We talked at length about his liver disease severity. Reason For Visit: END STAGE LIVER DISEASE,SBP Physical Exam Vital Signs: Temp Pulse Resp BP Pulse Ox 98.3 F 85 17 113/61 100 01/03/18 16:10 01/03/18 16:10 01/03/18 16:10 01/03/18 16:10 01/03/18 16:10 Intake & Output 01/02/18 01/03/18 01/04/18 06:59 06:59 06:59 Intake Total 1150 1218 Output Total 375 110 Balance 775 1108 Weight 103.1 kg General appearance: PRESENT: no acute distress Head exam: PRESENT: atraumatic, normocephalic Eye exam: PRESENT: scleral icterus. ABSENT: conjunctival injection Ear exam: PRESENT: normal external ear exam Mouth exam: PRESENT: moist, tongue midline Respiratory exam: PRESENT: clear to auscultation geoff, unlabored. ABSENT: rales , rhonchi, wheezes Cardiovascular exam: PRESENT: RRR, systolic murmur Pulses: PRESENT: normal radial pulses GI/Abdominal exam: PRESENT: ascites, distended, firm, guarding Gentrourinary exam: PRESENT: indwelling catheter - small amount orange urine Musculoskeletal exam: ABSENT: deformity Neurological exam: PRESENT: alert, awake, oriented to person, oriented to place , oriented to situation, CN II-XII grossly intact Psychiatric exam: PRESENT: appropriate affect. ABSENT: anxious Skin exam: PRESENT: dry, intact, jaundice, warm, other Results Laboratory Results: 01/03/18 08:08 01/03/18 05:41 01/03/18 01/03/18 01/03/18 05:41 05:41 08:08 WBC Cancelled 7.7 RBC Cancelled 3.46 L Hgb Cancelled 12.4 L Hct Cancelled 34.7 L MCV Cancelled 100 H MCH Cancelled 35.9 H MCHC Cancelled 35.7 RDW Cancelled 15.8 H Plt Count Cancelled 94 L Sodium 128.6 L Potassium 3.7 Chloride 100 Carbon Dioxide 15 L Anion Gap 14 BUN 50 H Creatinine 3.04 H Est GFR ( Amer) 27 L Est GFR (Non-Af Amer) 22 L Glucose 129 H Calcium 8.0 L Total Bilirubin 32.9 H AST 112 H ALT 54 Alkaline Phosphatase 184 H Total Protein 6.4 Albumin 2.4 L Lipase 314.0 H Impressions: Vascular Ultrasound 01/02/18 00:00 IMPRESSION: No evidence of Budd-Chiari syndrome. Paracentesis Ultrasound 01/02/18 09:39 IMPRESSION: Successful ultrasound-guided therapeutic and diagnostic paracentesis Assessment & Plan - Diagnosis (1) Ascites Qualifiers: Ascites type: due to alcoholic cirrhosis Qualified Code(s): K70.31 - Alcoholic cirrhosis of liver with ascites Is this a current diagnosis for this admission?: Yes Plan: I spoke with Dr. Christian bobcat driver/labor at [place] who recs albumin 1.5g/kg of 25% albumin now and 1.0 g/kg of 25 albumin in 2 days. Will hold IV fluids for now. Diruesis on hold due to severe renal dysfunction. (2) SBP (spontaneous bacterial peritonitis) Is this a current diagnosis for this admission?: Yes Plan: Segmented neutrophils are at 10 though peritoneal fluid culture is still pending. She has significant abdominal pain with rebound tenderness. Continue antibiotics, Zosyn renally dose, until culture returns. Albumin ordered as above. (3) Acute kidney injury Is this a current diagnosis for this admission?: Yes Plan: Patient's urine sodium is less than 5. His renal function is worsening. Tang catheter is in place. No evidence of urinary tract infection. He may have hepatorenal syndrome unfortunately. I have consulted the house admin. (4) Alcohol use disorder Is this a current diagnosis for this admission?: Yes Plan: Patient quit drinking almost 12 weeks ago. He is interested in aggressive medical care at this time. (5) Alcoholic cirrhosis of liver Qualifiers: Ascites presence: with ascites Qualified Code(s): K70.31 - Alcoholic cirrhosis of liver with ascites Is this a current diagnosis for this admission?: Yes (6) Pancreatitis Is this a current diagnosis for this admission?: Yes (7) Encephalopathy Is this a current diagnosis for this admission?: Yes Plan: Today patient is a little bit more clear headed. Ammonia level is normal. We will not administer lactulose at this time. - Time Time Spent with patient: 35 or more minutes Medications reviewed and adjusted accordingly: Yes - Inpatient Certification Based on my medical assessment, after consideration of the patient's comorbidities, presenting symptoms, or acuity I expect that the services needed warrant INPATIENT care.: Yes I certify that my determination is in accordance with my understanding of Medicare's requirements for reasonable and necessary INPATIENT services [42 CFR 412.3e].: Yes Medical Necessity: Need Close Monitoring Due to Risk of Patient Decompensation, Need for IV Antibiotics, Risk of Complication if Not Cared For in Hospital - Plan Summary Plan Summary: Secondary to severity of illness I consulted the bobcat driver/labor at [place] for transfer. The patient has been accepted by the hospitalist and the bobcat driver/labor , there is no bed available and so we continue current care here. Nephrology has been consulted. Sent has been abstinent for almost 3 months. It is possible that this patient could survive to transplant.
--- NOTE | 2018-01-03 18:58 | PDOC CONSULTATION ---
Consultation Consult Date: 01/03/18 Attending physician:: NAVID STEWART Consult reason:: I was asked to see the patient because of worsening kidney function. History of Present Illness Admission Date/PCP: 01/02/18 14:33 History of Present Illness: JAY BURTON is a 47 year old male with history of heavy alcohol use and hypertension who was admitted yesterday because of abdominal pain due to worsening ascites. Patient became aware of his liver disease about 5 weeks ago. He does not usually follow up with physicians and he only see her provider in [facility] and Dr. Maldonado in [place]. he admits to drinking alcohol may be a 6- 12 pack every few days but could not quantify. Apparently the patient has had 3 emergency room visits and underwent large volume paracentesis. This time his complaint of abdominal pain because of abdominal distention due to worsening ascites. He also has lower extremity edema. He has jaundice for about 10 weeks. He complains of some shortness of breathing whenever his ascites is getting worse. Yesterday he admits to some nausea but no vomiting and today he is having some hiccups. He said he is eating okay and he has appetite but intake is not as much because if he eats too much she is abdomen becomes more distended. So yesterday the patient had large volume paracentesis obtaining 6 L of fluid. He was also noted to have spontaneous bacterial peritonitis and is being treated with IV Zosyn. Dr. Stewart has spoke to the filter tip inspector at [place] and is currently waiting to be transferred. The patient was also noted to have worsening kidney function. Yesterday he has a BUN of 41 creatinine of 2.7 with estimated GFR of 26. Today he has a BUN of 50, creatinine of 3.04 and estimated GFR of 22. Previous kidney function on December 20 that we have on record showed a BUN of 20, creatinine of 1.62 and estimated GFR 46. He also has worsening hyponatremia currently at 128.6 and worsening acidosis with bicarbonate of 15. As expected he has low albumin of 2.4 and is not really perceive albumin on this admission yet. He is oliguric and made only about 230 mL of urine today despite receiving IV fluids at 125 mL an hour, IV antibiotics and actually drinking at least 2-3 L of water as reported by the patient. Patient also claims that he has been drinking fluids even at home about 1 gallon a day and does not feel like he is dehydrated. He does admit that his urine output has also been diminishing for the last 2 weeks. He denies any history of kidney problems in the past that he is aware off. He denies seeing any blood in the urine or foamy urine. He does not have any known history of hepatitis. His blood pressure is acceptable and running 100 200 teens over 50-70 since admission. His urine sodium is very low and reported to be less than 5. Past Medical History Cardiac Medical History: Reports: Hypertension-primary - Diagnosed in 2013 but he said he has not really been taking any medications GI Medical History: Reports: Cirrhosis Psychiatric Medical History: Reports: Alcohol Dependency Past Surgical History Past Surgical History: Reports: Other - Vasectomy Social History Information Source: Patient Lives with: Family Smoking Status: Former Smoker Cigarettes Packs Per Day: 0.5 Number of Years Smokin Last Time Smoked: 1993 Frequency of Alcohol Use: Heavy Hx Recreational Drug Use: No Drugs: None Hx Prescription Drug Abuse: No - Advance Directive Resuscitation Status: Full Code Family History Family History: DM - Mother, Hypertension - Parents, Other - Heart murmur on his son Parental Family History Reviewed: Yes Children Family History Reviewed: Yes Sibling(s) Family History Reviewed.: Yes Medication/Allergy Home Medications: No Home Medications 01/02/18 Allergies/Adverse Reactions: bee venom protein (honey bee) Adverse Reaction (Intermediate, Verified 01/02/18 08:03) Edema Review of Systems All systems: reviewed and no additional remarkable complaints except as stated Review of Systems: Constitutional: ABSENT: chills, fatigue, fever(s), headache(s), weight gain, weight loss Eyes: ABSENT: visual disturbances Ears: ABSENT: hearing changes Cardiovascular: ABSENT: chest pain, dyspnea on exertion, orthropnea, palpitations; admits edema Respiratory: ABSENT: cough, hemoptysis; admits shortness of breath with increasing ascites Gastrointestinal: ABSENT: Constipation, diarrhea, hematemesis, hematochezia, nausea, vomiting; admits abdominal pain and abdominal distention Genitourinary: ABSENT: dysuria, hematuria; admits decreased urine output Musculoskeletal: ABSENT: joint swelling Integumentary: ABSENT: rash, wounds Neurological: ABSENT: abnormal gait, abnormal speech, confusion, dizziness, focal weakness, numbness, syncope Psychiatric: ABSENT: anxiety, depression Endocrine: ABSENT: cold intolerance, heat intolerance, polydipsia, polyuria Hematologic/Lymphatic: ABSENT: easy bleeding, easy bruising, lymphadenopathy Physical Exam Vital Signs: Temp Pulse Resp BP Pulse Ox 98.3 F 85 17 113/61 100 01/03/18 16:10 01/03/18 16:10 01/03/18 16:10 01/03/18 16:10 01/03/18 16:10 Intake & Output 01/02/18 01/03/18 01/04/18 06:59 06:59 06:59 Intake Total 1150 1218 Output Total 375 110 Balance 775 1108 Weight 103.1 kg Exam: General appearance: No acute distress, cooperative, well-developed, well- nourished Head exam: PRESENT: atraumatic, normocephalic Eye exam: PRESENT: Conjunctiva pale, EOMI, PERRLA. Icteric sclera ABSENT: conjunctival injection Mouth exam: PRESENT: moist, neck supple, tongue midline Neck exam: PRESENT: full ROM. ABSENT: carotid bruit, JVD, lymphadenopathy, thyromegaly Respiratory exam: PRESENT: clear to auscultation bilaterally. ABSENT: rales, rhonchi, stridor, wheezes Cardiovascular exam: PRESENT: RRR, +S1, +S2. Grade 1/6 systolic murmur Pulses: PRESENT: normal radial pulses, normal dorsalis pedis pulses GI/Abdominal exam: PRESENT: normal bowel sounds, positive abdominal distention with fluid wave consistent with significant ascites, positive tenderness on palpation ABSENT: guarding, mass Rectal exam: Deferred Extremities exam: PRESENT: full ROM. Grade 1 bilateral lower extremity edema with significant pitting edema and dependent portion of his body including his buttocks his thighs and back ABSENT: calf tenderness Musculoskeletal: PRESENT: full ROM. ABSENT: deformity Neurological exam: PRESENT: alert, Awake, Oriented to person, Oriented to place , Oriented to time, reflexes normal, CN II-XII grossly intact. ABSENT: motor sensory deficit Psychiatric exam: PRESENT: appropriate affect, normal mood. ABSENT: homicidal ideation, suicidal ideation Skin exam: PRESENT: intact, dry, warm. Positive jaundice ABSENT: rash Results Laboratory Results: 01/03/18 08:08 01/03/18 05:41 01/03/18 01/03/18 01/03/18 05:41 05:41 08:08 WBC Cancelled 7.7 RBC Cancelled 3.46 L Hgb Cancelled 12.4 L Hct Cancelled 34.7 L MCV Cancelled 100 H MCH Cancelled 35.9 H MCHC Cancelled 35.7 RDW Cancelled 15.8 H Plt Count Cancelled 94 L Sodium 128.6 L Potassium 3.7 Chloride 100 Carbon Dioxide 15 L Anion Gap 14 BUN 50 H Creatinine 3.04 H Est GFR ( Amer) 27 L Est GFR (Non-Af Amer) 22 L Glucose 129 H Calcium 8.0 L Total Bilirubin 32.9 H AST 112 H ALT 54 Alkaline Phosphatase 184 H Total Protein 6.4 Albumin 2.4 L Lipase 314.0 H Impressions: Vascular Ultrasound 01/02/18 00:00 IMPRESSION: No evidence of Budd-Chiari syndrome. Paracentesis Ultrasound 01/02/18 09:39 IMPRESSION: Successful ultrasound-guided therapeutic and diagnostic paracentesis Assessment & Plan - Diagnosis (1) Acute kidney injury Is this a current diagnosis for this admission?: Yes Plan: Patient is oliguric with urine sodium less than 5 without any response to IV fluid hydration for the last 24 hours. This most likely secondary to acute hepatorenal syndrome. I recommended trying some diuretics but according to Dr. Stewart the filter tip inspector would like to try IV albumin for his so we will hold for now. The ultimate treatment of this is to have a treatment plan for his liver disease which he is on a wait list for transfer to [place]. Meanwhile regarding need to continue to monitor his kidney function. I explained to the patient his ex- and children at bedside that if his kidney function continues to get worse there is a chance that he might require renal replacement therapy. I explained what the procedure is and how it is being done. Also explained complications. At this time he does not need any urgent or emergent renal replacement therapy. Needs to continue to monitor kidney function. Since the patient is oliguric I think we have to start doing fluid restriction. I will restrict his oral fluid intake to [address] Stewart is also going to discontinue the IV fluids per recommendation of filter tip inspector which I agree. Avoid further nephrotoxic medications. Adjust medications according to kidney function. It is also possible the patient may have an underlying kidney disease but we do not have any records to support that. (2) Hepatorenal syndrome Is this a current diagnosis for this admission?: Yes (3) Alcoholic cirrhosis of liver Qualifiers: Ascites presence: with ascites Qualified Code(s): K70.31 - Alcoholic cirrhosis of liver with ascites Is this a current diagnosis for this admission?: Yes Plan: Patient on a wait list for transfer to [place]. Management per hospitalist service. (4) Ascites Qualifiers: Ascites type: due to alcoholic cirrhosis Qualified Code(s): K70.31 - Alcoholic cirrhosis of liver with ascites Is this a current diagnosis for this admission?: Yes Plan: Status post large volume paracentesis. Agree with IV albumin infusion. (5) Hyponatremia Is this a current diagnosis for this admission?: Yes Plan: This is likely related to hypervolemic state and increase oral water intake. Restrict oral water intake to 1500 mL a day. (6) Metabolic acidosis Is this a current diagnosis for this admission?: Yes Plan: Start sodium bicarbonate 650 mg p.o. every 12 starting today. (7) SBP (spontaneous bacterial peritonitis) Is this a current diagnosis for this admission?: Yes Plan: On IV Zosyn. - Notes Notes: Thank you very much for this consultation. Case discussed with Dr. Stewart. I will continue to follow the patient while here in the hospital. - Time Time Spent: Greater than 70 Minutes
[2018-01-03] MEDS: ALBUMIN HUMAN 12.5 GM/50 ML RTUINJ IV SCH ×5 (20:58→22:46)
[2018-01-03] MEDS: SODIUM BICARBONATE 650 MG TABLET PO SCH (21:35)
[2018-01-04] MEDS: ALBUMIN HUMAN 12.5 GM/50 ML RTUINJ IV SCH ×7 (01:00→06:18)
[2018-01-04] MEDS: PIPERACILLIN SODIUM/TAZOBACTAM 2.25 GM in NORMAL SALINE 50 ML IV SCH ×4 (02:59→20:34)
[2018-01-04] MEDS: RINGERS SOLUTION,LACTATED 1,000 ML IV PRN (03:00)
[2018-01-04 05:56] LABS: ALANINE AMINOTRANSFERASE 52 U/L (21-72); ALKALINE PHOSPHATASE 154 U/L (38-126); ANION GAP 15 (5-19); ASPARTATE AMINO TRANSFERASE 81 U/L (17-59); BLOOD UREA NITROGEN 50 mg/dL (7-20); CALCIUM 8.3 mg/dL (8.4-10.2); CARBON DIOXIDE 17 mmol/L (22-30); CHLORIDE 100 mmol/L (98-107); GLUCOSE 82 mg/dL (75-110); POTASSIUM 3.3 mmol/L (3.6-5.0); SODIUM 131.8 mmol/L (137-145); TOTAL PROTEIN 6.8 g/dL (6.3-8.2)
[2018-01-04 06:09] LABS: BILIRUBIN,TOTAL 33.1 mg/dL (0.2-1.3)
[2018-01-04] MEDS: LANSOPRAZOLE 30 MG TAB.RAP.DR PO SCH ×2 (06:23→17:34)
[2018-01-04 07:08] LABS: HEMOGLOBIN 10.9 g/dL (13.5-17.0); MEAN CORPUSCULAR HEMOGLOBIN 35.9 pg (27.0-33.4); MEAN CORPUSCULAR HGB CONC 36.4 g/dL (32.0-36.0); MEAN CORPUSCULAR VOLUME 99 fl (80-97); RED BLOOD COUNT 3.04 10^6/uL (4.35-5.55); RED CELL DISTRIBUTION WIDTH 15.2 % (11.5-14.0); WHITE BLOOD COUNT 5.2 10^3/uL (4.0-10.5)
[2018-01-04 07:53] LABS: PLATELET COUNT 71 10^3/uL (150-450)
[2018-01-04] MEDS: FENTANYL CITRATE INJ/PF 100 MCG/2 ML AMPUL IV PRN ×2 (11:49→17:46)
[2018-01-04] MEDS: SODIUM BICARBONATE 650 MG TABLET PO SCH (11:52)
[2018-01-04] MEDS ORDERED: POTASSIUM CHLORIDE 10 MEQ CAPSULE.ER PO ONE (16:59)
--- NOTE | 2018-01-04 17:06 | PDOC PROGRESS REPORT ---
Subjective Progress Note for:: 01/04/18 Subjective:: Patient remained stable. His urine output has significantly improved with IV albumin infusion. He is still waiting for bed and [place]. His abdominal pain seems to be a little less. Denies any other new symptoms. Reason For Visit: END STAGE LIVER DISEASE,SBP Physical Exam Vital Signs: Temp Pulse Resp BP Pulse Ox 99.1 F 83 18 109/57 L 99 01/04/18 15:47 01/04/18 15:47 01/04/18 15:47 01/04/18 15:47 01/04/18 15:47 Intake & Output 01/03/18 01/04/18 01/05/18 06:59 06:59 06:59 Intake Total 1150 5041 286 Output Total 375 1205 500 Balance 775 3836 -214 Weight 103.1 kg 110.5 kg Exam: General appearance: PRESENT: no acute distress, cooperative, well-developed, well-nourished Head exam: PRESENT: atraumatic, normocephalic Eye exam: PRESENT: conjunctiva pale, PERRLA. Icteric sclerae Neck exam: ABSENT: JVD Respiratory exam: PRESENT: Normal breath sounds. ABSENT: crackles, rales, rhonchi, unlabored, wheezes Cardiovascular exam: PRESENT: Regular rate rhythm -+S1, +S2. ABSENT: diastolic murmur, systolic murmur GI/Abdominal exam: PRESENT: normal bowel sounds, soft. Distended abdomen, positive ascites, less tenderness compared to yesterday. ABSENT: guarding, mass Extremities exam: Grade 1 bilateral lower extremity pitting edema and edema on dependent portions of his body. Neurological exam: PRESENT: alert, awake, oriented to person, place and time. Skin exam: PRESENT: dry, warm, jaundice Results Laboratory Results: 01/04/18 06:44 01/04/18 05:05 01/04/18 01/04/18 01/04/18 05:05 05:05 06:44 WBC Cancelled 5.2 RBC Cancelled 3.04 L Hgb Cancelled 10.9 L Hct Cancelled 30.0 L MCV Cancelled 99 H MCH Cancelled 35.9 H MCHC Cancelled 36.4 H RDW Cancelled 15.2 H Plt Count Cancelled 71 L Sodium 131.8 L Potassium 3.3 L Chloride 100 Carbon Dioxide 17 L Anion Gap 15 BUN 50 H Creatinine 2.85 H Est GFR ( Amer) 29 L Est GFR (Non-Af Amer) 24 L Glucose 82 Calcium 8.3 L Total Bilirubin 33.1 H AST 81 H ALT 52 Alkaline Phosphatase 154 H Total Protein 6.8 Albumin 3.0 L 01/02/18 16:42 Tang Catheter Urine Culture - Final NO GROWTH 2 DAYS Impressions: Vascular Ultrasound 01/02/18 00:00 IMPRESSION: No evidence of Budd-Chiari syndrome. Paracentesis Ultrasound 01/02/18 09:39 IMPRESSION: Successful ultrasound-guided therapeutic and diagnostic paracentesis Assessment & Plan - Diagnosis (1) Acute kidney injury Is this a current diagnosis for this admission?: Yes Plan: Likely due to hepatorenal syndrome. Urine output improved with IV albumin infusion. Kidney function unchanged. Continue to monitor kidney function and intermittent IV albumin infusion. Will hold diuretics for now. No need of renal replacement therapy at this point. (2) Hepatorenal syndrome Is this a current diagnosis for this admission?: Yes (3) Alcoholic cirrhosis of liver Qualifiers: Ascites presence: with ascites Qualified Code(s): K70.31 - Alcoholic cirrhosis of liver with ascites Is this a current diagnosis for this admission?: Yes Plan: Awaiting transfer to [place] to be evaluated by a spin tank tender. (4) Ascites Qualifiers: Ascites type: due to alcoholic cirrhosis Qualified Code(s): K70.31 - Alcoholic cirrhosis of liver with ascites Is this a current diagnosis for this admission?: Yes (5) Hyponatremia Is this a current diagnosis for this admission?: Yes Plan: Slowly improving. Continue water restriction. (6) Metabolic acidosis Is this a current diagnosis for this admission?: Yes Plan: Slightly improved. Continue sodium bicarbonate. (7) SBP (spontaneous bacterial peritonitis) Is this a current diagnosis for this admission?: Yes Plan: Continue IV Zosyn. (8) Hypokalemia Is this a current diagnosis for this admission?: Yes Plan: Potassium replacement as necessary. - Time Time with patient: 15-25 minutes
--- NOTE | 2018-01-04 18:35 | PDOC TRANSFER SUMMARY ---
General Admission Date/PCP: 01/02/18 14:33 Resuscitation Status: Full Code - Transfer Diagnosis (1) Hepatorenal syndrome Is this a current diagnosis for this admission?: Yes Diagnosis Summary: This 47-year-old man with an extensive alcohol abuse history was admitted to the hospital with refractory ascites, having had 3 paracenteses over the last few weeks in our ER. Addition to his refractory ascites, extremely elevated bilirubin had an acute kidney injury with a urine sodium of less than 5. It is possible that this patient has an hepatorenal syndrome. Initially he was diagnosed with SBP and treated with Zosyn renally dosed and his paracentesis culture has come back negative, less than 250 polys. Due to the possibility of SBP and hepatorenal syndrome we discontinued LR and the patient was given 1.5 g/ kg of albumin on day 1 with second dose planned on day 3 of 1 g/kg 25% concentrated albumin. After the albumin and with antibiotics the patient's creatinine improved some today. Director Of Scientific Research has been following. Patient has not been diuresed secondary to possible hepatorenal syndrome. With the albumin his urine output increased significantly today. (2) Ascites Is this a current diagnosis for this admission?: Yes Diagnosis Summary: Patient has had 3 large-volume paracenteses in the ER at [facility]. It is possible that the 5-6 L fluid withdrawal negatively impacted his kidneys. As noted above his renal function did improve some today. His urine output has improved. (3) SBP (spontaneous bacterial peritonitis) Is this a current diagnosis for this admission?: Yes Diagnosis Summary: Patient's polys came back at less than 250 and he had a negative paracentesis fluid culture. He was on Zosyn throughout his less than 2-day stay here in the hospital because of the possibility of SBP. He also received day 1 of albumin 1.5 g/kg of 25% concentrated albumin. (4) Acute kidney injury Is this a current diagnosis for this admission?: Yes Diagnosis Summary: BUN 50 and creatinine 3.04 yesterday and today BUN was 50 with creatinine of 2.85. Director Of Scientific Research has been following the patient here. He has a Tang catheter in place. His urine output has picked up significantly. (5) Alcohol use disorder Is this a current diagnosis for this admission?: Yes Diagnosis Summary: His alcohol history started when he was about 17 years old and he reports that through his years in the [employer] he drinks alcohol very heavily. Patient has been abstinent from alcohol for almost 3 months. He is interested in continued alcohol abstinence and is very interested in discussing liver transplant if he is a candidate. (6) Alcoholic cirrhosis of liver Is this a current diagnosis for this admission?: Yes Diagnosis Summary: Patient has never been diagnosed with cirrhosis or liver disease. All of these findings are new to him, he is anxious and sad. He requests full aggressive medical treatment at this time and would like to be kept up-to-date with his progress. Of note his ammonia level is normal and he is not encephalopathic. (7) Hypokalemia Is this a current diagnosis for this admission?: Yes Diagnosis Summary: 40 mEq of potassium was administered today for a potassium of 3.3. (8) Abdominal pain Is this a current diagnosis for this admission?: Yes Diagnosis Summary: Secondary to both renal and liver dysfunction the patient was given IV fentanyl for pain. 12.5 mcg IV every 6 hours as needed severe pain. - Transfer Medications Home Medications: No Home Medications 01/02/18 Transfer Medications: Current Medications Fentanyl Citrate (Sublimaze Inj/Pf 100 Mcg/2 Ml Ampule) 12.5 mcg IV Q6HP PRN PRN Reason: FOR PAIN SCALE 3-5 Stop: 01/11/18 10:54 Last Admin: 01/04/18 17:46 Dose: 12.5 mcg Piperacillin Sod/Tazobactam (Sod 2.25 gm/ Sodium Chloride) 50 mls @ 100 mls/hr IV Q6A FREDERICK Stop: 01/10/18 02:59 Last Admin: 01/04/18 17:34 Dose: 100 mls/hr, 100 mls/hr Albumin Human (Albuminar-25 Rtu Inj 12.5 Gm/50 Ml Premix) 12.5 gm in 50 mls @ 50 mls/hr IV Q1H FREDERICK Stop: 01/06/18 17:59 Lansoprazole (Prevacid 30 Mg Odt Tablet) 30 mg PO BID@0600,1700 FREDERICK Stop: 02/01/18 16:59 Last Admin: 01/04/18 17:34 Dose: 30 mg Sodium Bicarbonate (Sodium Bicarbonate 650 Mg Tablet) 650 mg PO Q12 FREDERICK Stop: 02/02/18 18:59 Last Admin: 01/04/18 11:52 Dose: 650 mg Sodium Chloride (Saline Flush 2.5 Ml Monoject Prefil Syrin) 2.5 ml IV Q8 FREDERICK Stop: 02/01/18 21:59 Last Admin: 01/04/18 14:30 Dose: 2.5 ml - Allergies Allergies/Adverse Reactions: bee venom protein (honey bee) Adverse Reaction (Intermediate, Verified 01/02/18 08:03) Edema - Diet/Activity Discharge Diet: Other (Comments) - per admitting physican Discharge Activity: Other - per admitting physician Hospital Course Hospital Course: Please see problem list Physical Exam Vital Signs: Temp Pulse Resp BP Pulse Ox 99.1 F 83 18 109/57 L 99 01/04/18 15:47 01/04/18 15:47 01/04/18 15:47 01/04/18 15:47 01/04/18 15:47 Intake & Output 01/03/18 01/04/18 01/05/18 06:59 06:59 06:59 Intake Total 1150 5041 286 Output Total 375 1205 500 Balance 775 3836 -214 Weight 103.1 kg 110.5 kg General appearance: PRESENT: no acute distress, cooperative Head exam: PRESENT: atraumatic, normocephalic Eye exam: PRESENT: EOMI, scleral icterus Ear exam: PRESENT: normal external ear exam Mouth exam: PRESENT: moist Respiratory exam: PRESENT: clear to auscultation geoff, unlabored. ABSENT: rales , rhonchi, wheezes Cardiovascular exam: PRESENT: RRR. ABSENT: systolic murmur Pulses: PRESENT: normal radial pulses GI/Abdominal exam: PRESENT: distended, firm, hypoactive bowel sounds, tenderness. ABSENT: guarding Rectal exam: PRESENT: deferred Gentrourinary exam: PRESENT: indwelling catheter - [place] urine in Tang bag Neurological exam: PRESENT: alert, awake, oriented to person, oriented to place , oriented to situation, CN II-XII grossly intact Psychiatric exam: PRESENT: appropriate affect, other - sad Skin exam: PRESENT: jaundice Results Laboratory Results: 01/04/18 06:44 01/04/18 05:05 01/04/18 01/04/18 01/04/18 05:05 05:05 06:44 WBC Cancelled 5.2 RBC Cancelled 3.04 L Hgb Cancelled 10.9 L Hct Cancelled 30.0 L MCV Cancelled 99 H MCH Cancelled 35.9 H MCHC Cancelled 36.4 H RDW Cancelled 15.2 H Plt Count Cancelled 71 L Sodium 131.8 L Potassium 3.3 L Chloride 100 Carbon Dioxide 17 L Anion Gap 15 BUN 50 H Creatinine 2.85 H Est GFR ( Amer) 29 L Est GFR (Non-Af Amer) 24 L Glucose 82 Calcium 8.3 L Total Bilirubin 33.1 H AST 81 H ALT 52 Alkaline Phosphatase 154 H Total Protein 6.8 Albumin 3.0 L 01/02/18 16:42 Tang Catheter Urine Culture - Final NO GROWTH 2 DAYS Impressions: Vascular Ultrasound 01/02/18 00:00 IMPRESSION: No evidence of Budd-Chiari syndrome. Paracentesis Ultrasound 01/02/18 09:39 IMPRESSION: Successful ultrasound-guided therapeutic and diagnostic paracentesis Plan Time Spent: Greater than 30 Minutes - Secondary to possible hepatorenal syndrome and the possibility that this patient could end up on the transplant list I have requested transfer to [facility] so the patient can be managed by the [facility]. He has been accepted today and will be transported today. He is hemodynamically stable for transport.
[2018-01-04 19:35] VITALS: BP 110/61
[2018-01-06] MEDS ORDERED: ALBUMIN HUMAN 12.5 GM/50 ML RTUINJ IV SCH (10:00)
== END 2018-01-04 21:52 | disposition short-term general hospital (02) | DRG 432 ==
LOC: ER 08:02 → EH 14:33 → 3W 22:00
PROVIDERS: ADMIT Emergency Medicine; ATTEND Emergency Medicine
PROC: 0W9G3ZX Drainage of Peritoneal Cavity, Percutaneous Approach, Diagnostic (ICD-10-PCS; principal; 2018-01-02)
DX: K70.31 Alcoholic cirrhosis of liver with ascites (principal); K76.7 Hepatorenal syndrome; N17.9 Acute kidney failure, unspecified; E87.1 Hypo-osmolality and hyponatremia; E87.2 Acidosis; F10.21 Alcohol dependence, in remission; E87.6 Hypokalemia; I10 Essential (primary) hypertension; Z91.030 Bee allergy status; Z91.14 Patient's other noncompliance with medication regimen; Z87.891 Personal history of nicotine dependence; Z83.3 Family history of diabetes mellitus; Z82.49 Family history of ischemic heart disease and other diseases of the circulatory system; Z81.1 Family history of alcohol abuse and dependence
CPT/HCPCS: 36415; 49083; 80053; 81001; 82140; 83690; 84300; 85025; 85027; 85610; 85730; 87040; 87070; 87075; 87077; 87086; 87186; 87205; 89050; 93976; 96361; 96374; 96375; 99291; J0696; J1170; J2270; J2543; J3010; J3490; P9047

== ENCOUNTER → 2018-02-24 | Outpatient (CLI) | payer OTHER ==
[2018-02-24 10:28] LABS: HEMATOCRIT 28.2 % (37.9-51.0); HEMOGLOBIN 10.2 g/dL (13.5-17.0); MEAN CORPUSCULAR HEMOGLOBIN 36.3 pg (27.0-33.4); MEAN CORPUSCULAR HGB CONC 36.1 g/dL (32.0-36.0); MEAN CORPUSCULAR VOLUME 101 fl (80-97)
[2018-02-24 10:35] LABS: INTERNATIONAL RATION (INR) 1.25; PROTHROMBIN TIME 16.3 SEC (11.4-15.4)
[2018-02-24 10:50] LABS: ALANINE AMINOTRANSFERASE 84 U/L (21-72); ALBUMIN 3.8 g/dL (3.5-5.0); ALKALINE PHOSPHATASE 253 U/L (38-126); ANION GAP 17 (5-19); ASPARTATE AMINO TRANSFERASE 188 U/L (17-59); BILIRUBIN,DIRECT 8.9 mg/dL (0.0-0.4); BILIRUBIN,TOTAL 13.2 mg/dL (0.2-1.3); BLOOD UREA NITROGEN 14 mg/dL (7-20); CALCIUM 9.3 mg/dL (8.4-10.2); CARBON DIOXIDE 18 mmol/L (22-30); CHLORIDE 102 mmol/L (98-107); GLUCOSE 106 mg/dL (75-110); POTASSIUM 4.1 mmol/L (3.6-5.0); SODIUM 136.6 mmol/L (137-145); TOTAL PROTEIN 8.2 g/dL (6.3-8.2)
[2018-02-24 11:19] LABS: PLATELET COUNT 112 10^3/uL (150-450)
[2018-02-24 11:21] LABS: RED BLOOD COUNT 2.81 10^6/uL (4.35-5.55)
== END ==
LOC: OD 09:36
PROVIDERS: ATTEND Internal Medicine
DX: K70.9 Alcoholic liver disease, unspecified (principal)
CPT/HCPCS: 36415; 80053; 85027; 85610

== ENCOUNTER → 2018-04-19 | Outpatient (CLI) | payer OTHER ==
[2018-04-19 11:29] LABS: ANION GAP 8 (5-19); BLOOD UREA NITROGEN 19 mg/dL (7-20); CALCIUM 9.4 mg/dL (8.4-10.2); CARBON DIOXIDE 24 mmol/L (22-30); CHLORIDE 109 mmol/L (98-107); GLUCOSE 101 mg/dL (75-110); SODIUM 141.4 mmol/L (137-145)
== END ==
LOC: OD 10:10
PROVIDERS: ATTEND Internal Medicine
DX: K70.31 Alcoholic cirrhosis of liver with ascites (principal)
CPT/HCPCS: 36415; 80048

== ENCOUNTER → 2020-03-28 | Outpatient (CLI) | payer OTHER ==
[2020-03-28 09:50] LABS: ANION GAP 5 (5-19); BLOOD UREA NITROGEN 10 mg/dL (7-20); CALCIUM 8.8 mg/dL (8.4-10.2); CARBON DIOXIDE 23 mmol/L (22-30); CHLORIDE 110 mmol/L (98-107); GLUCOSE 95 mg/dL (75-110); POTASSIUM 4.3 mmol/L (3.6-5.0)
== END ==
LOC: OD 08:51
PROVIDERS: ATTEND Internal Medicine
DX: K70.31 Alcoholic cirrhosis of liver with ascites (principal)
CPT/HCPCS: 36415; 80048